=== PATIENT | male | born 1955 | race Caucasian/White ===

== ENCOUNTER 2020-01-17 09:37 | Day surgery (SDC) | payer MEDICARE ==
[2020-01-15 16:05] VITALS: BMI 34.9
[~2020-01-17 09:37] MED LIST: LACTATED RINGERS 1,000 ML IV SCH
[2020-01-17] MEDS ORDERED: LIDOCAINE 1% (10MG/ML) FOR IV START INTRADERMA ONE (10:29)
[2020-01-17 10:48] VITALS: RESP 18; TEMP 97.3
[2020-01-17] MEDS ORDERED: LIDOCAINE 1% INJ 10MG/ML (20 ML MDV) ONE (11:20)
[2020-01-17] MEDS ORDERED: PROPOFOL 10 MG/ML 20 ML VIAL IV ONE (11:20)
--- NOTE | 2020-01-17 11:34 | P.PCN ---
Date of Procedure: 01/17/20 Procedure(s) Performed: BRIEF HISTORY: Patient is a 65-year-old, pleasant, white female, scheduled for an upper endoscopy as a part of dilation as a part of evaluation of intermittent dysphagia to solids for the last 2 months duration. She has long-standing history of GERD and has esophageal dilation approximately 3 years ago.. PROCEDURE PERFORMED: Esophagogastroduodenoscopy with dilation and biopsy PREOPERATIVE DIAGNOSIS: Progressive dysphagia to solids. IV sedation per anesthesia. PROCEDURE: After informed consent was obtained, the patient was brought into the endoscopy unit. IV sedation was administered by Anesthesia under continuous monitoring. Initially the Olympus GIF-140 video endoscope was inserted into the mouth. Esophagus intubated without any difficulty. It was gradually advanced into the stomach and duodenum and carefully examined. The bulb and the second part of the duodenum appeared normal. The scope at this time was withdrawn to the stomach, adequately insufflated with air, and upon careful examination, mucosa of the antrum, body, cardia and the fundus appeared normal. The scope was then withdrawn into the esophagus. The GE junction was located at 34 cm from the incisors. There was a distal esophageal stricture identified and this was dilated with 10-12 mm balloon in a sequential fashion for 90 seconds. It was circumferential erythema as well as the distal esophagus consistent with LA grade C reflux esophagitis. Moderate size hiatal hernia noted. Rest of e sophagus appeared normal and the patient tolerated the procedure well. Impression 1. Distal esophageal stricture status post balloon dilation using 10-12 mm TTS balloon as described above. 2. Moderate Size hiatal hernia 3, LA grade C reflux esophagitis. RECOMMENDATIONS: The findings of this examination were discussed with the patient as well as her family. She was advised to remain on clear liquid diet for lunch today. She'll continue with Nexium 40 mg daily and follow antireflux measures. She'll be seen in office in 6 weeks.
[2020-01-17 12:23] VITALS: BP 128/73; PULSE 62
== END 2020-01-17 12:29 | disposition home or self-care (01) ==
LOC: ORWHC2ENDO 09:37
PROVIDERS: ATTEND Internal Medicine Gastroenterology
DX: K22.2 Esophageal obstruction (principal); K21.0 Gastro-esophageal reflux disease with esophagitis; K44.9 Diaphragmatic hernia without obstruction or gangrene; I25.2 Old myocardial infarction; K08.89 Other specified disorders of teeth and supporting structures; K08.409 Partial loss of teeth, unspecified cause, unspecified class; M06.9 Rheumatoid arthritis, unspecified; Z88.0 Allergy status to penicillin; Z88.6 Allergy status to analgesic agent; Z88.1 Allergy status to other antibiotic agents; Z91.013 Allergy to seafood; Z79.899 Other long term (current) drug therapy; Z79.891 Long term (current) use of opiate analgesic; Z87.891 Personal history of nicotine dependence; Z86.73 Personal history of transient ischemic attack (TIA), and cerebral infarction without residual deficits; Z98.890 Other specified postprocedural states
CPT/HCPCS: 88305; 43239; 43249; J2001; J2704; C1726 ×2

== ENCOUNTER 2024-05-06 16:08 | Inpatient (IN) | payer MEDICARE, OTHER ==
[2024-05-06] MEDS ORDERED: NALOXONE 0.4 MG/ML 1 ML VIAL IV PRN (16:46)
--- NOTE | 2024-05-06 16:54 | XR ---
EXAMINATION TYPE: XR chest 1V portable DATE OF EXAM: 05/06/2024 4:44 PM CLINICAL INDICATION: Male, 69 years old with history of chest tube placement; [facility] COMPARISON: Prior imaging at outside institution which demonstrated anterior pneumothorax on CT imagi ng. TECHNIQUE: XR chest 1V portable Frontal view of the chest. FINDINGS: Lungs/Pleura: Right pneumothorax appreciated on radiography. This was an anterior pneumothorax seen o n prior. There is no evidence of pleural effusion, focal consolidation, or left pneumothorax. Pulmonary vascularity: Unremarkable. Heart/mediastinum: Cardiomediastinal silhouette is unremarkable. Musculoskeletal: Acute right rib 7 and 8 fractures as seen on prior outside imaging. Other findings: None Lines/Tubes: Right thoracotomy tube is present without evidence of pneumothorax. IMPRESSION: 1. Right thoracotomy tube in appropriate position. No appreciable pneumothorax. 2. Right-sided rib fractures of ribs 7 and 8 remain present [facility], , 05/06/2024 4:52 PM
[2024-05-06 17:00] LABS: Basophils % (A) 0 %; Eosinophils # (A) 0.1 k/uL (0-0.7); Eosinophils % (A) 1 %; HCT 38.8 % (39.0-53.0); HGB 12.1 gm/dL (13.0-17.5); Hypochromasia Slight; Lymphocytes # (A) 2.3 k/uL (1.0-4.8); Lymphocytes % (A) 27 %; MCH 30.3 pg (25.0-35.0); MCHC 31.2 g/dL (31.0-37.0); MCV 97.1 fL (80.0-100.0); Mean Platelet Volume 7.6; Monocytes # (A) 0.6 k/uL (0-1.0); Monocytes % (A) 7 %; Neutrophils # (A) 5.2 k/uL (1.3-7.7); Neutrophils % (A) 61 %; Platelet Count 276 k/uL (150-450); RDW 13.5 % (11.5-15.5); WBC 8.5 k/uL (3.8-10.6)
[2024-05-06] MEDS: HYDROmorphone 0.5 MG/0.5 ML SYRINGE IVP PRN (17:02)
[2024-05-06 17:10] LABS: ALT 13 U/L (4-49); AST 27 U/L (17-59); African American GFR (CKD) >90 (>60 ml/min/1.73 sqM); Albumin 3.7 g/dL (3.5-5.0); Alkaline Phosphatase 110 U/L (38-126); Anion Gap 7 mmol/L; Blood Urea Nitrogen 20 mg/dL (9-20); Calcium 9.1 mg/dL (8.4-10.2); Carbon Dioxide 26 mmol/L (22-30); Chloride 103 mmol/L (98-107); Glucose 114 mg/dL (74-99); Non-African American GFR(CKD) 84 (>60 ml/min/1.73 sqM); Potassium 4.3 mmol/L (3.5-5.1); Sodium 136 mmol/L (137-145); Total Bilirubin 0.6 mg/dL (0.2-1.3); Total Protein 6.8 g/dL (6.3-8.2)
--- NOTE | 2024-05-06 17:16 | ED ---
General Adult HPI - General Chief complaint: Fall Stated complaint: R sided rib pain Time Seen by Provider: 05/06/24 16:13 Source: patient, RN notes reviewed, old records reviewed Mode of arrival: EMS Limitations: no limitations - History of Present Illness Initial comments: 69-year-old male transferred from outside hospital with right-sided rib fracture pneumothorax after sustaining a fall which occurred in the middle of the night. There was no head or neck trauma. Patient received CT imaging of the head, chest abdomen pelvis which showed a large pneumothorax on the right and displaced rib fractures seventh and eighth. Patient was transferred for chest tube placement and further evaluation and treatment. pain Controlled at this time. No difficulty breathing. - Related Data Home Medications Medication Instructions Recorded Confirmed Gabapentin 800 mg PO TID 01/15/20 05/06/24 HYDROcodone/APAP 10-325MG [Dorr 1 tab PO BID 01/15/20 05/06/24 10-325] Morphine Sulfate [Ms Contin] 100 mg PO Q12HR 01/15/20 05/06/24 Zolpidem Tartrate [Ambien] 10 mg PO HS 01/15/20 05/06/24 SUMAtriptan succinate [Imitrex] 50 mg PO DAILY PRN 05/06/24 05/06/24 Triamcinolone Acetonide 1 applic TOPICAL BID PRN 05/06/24 05/06/24 [Triamcinolone Acetonide 0.025%] Venlafaxine HCl [Effexor XR] 150 mg PO DAILY 05/06/24 05/06/24 rOPINIRole HCL [Requip] 3 mg PO HS PRN 05/06/24 05/06/24 Allergies Allergy/AdvReac Type Severity Reaction Status Date / Time aspirin Allergy Unknown Rash/Hives Verified 05/06/24 17:08 Penicillins Allergy Unknown Rash/Hives Verified 05/06/24 17:08 ciprofloxacin [From Cipro] Allergy fainting Verified 05/06/24 17:08 SEAFOOD Allergy Unknown Rash/Hives Uncoded 01/17/20 10:28 Review of Systems ROS Statement: Those systems with pertinent positive or pertinent negative responses have been documented in the HPI. ROS Other: All systems not noted in ROS Statement are negative. Past Medical History Past Medical History: GERD/Reflux, Myocardial Infarction ([place]), Rheumatoid Arthritis ([place]) Additional Past Medical History / Comment(s): "stroke of penis with difficulty urinating". difficulty eating wt loss of 100# over last 7 months Last Myocardial Infarction Date:: History of Any Multi-Drug Resistant Organisms: None Reported Past Surgical History: Joint Replacement, Tonsillectomy Additional Past Surgical History / Comment(s): 3 hip replacement surgeries lt hip, 1 replacement surgery to rt hip, shannan knee replacement, surgery to repair lt femur Past Anesthesia/Blood Transfusion Reactions: No Reported Reaction Past Psychological History: Depression Past Alcohol Use History: Rare Past Drug Use History: None Reported - Past Family History Mother Family Medical History: No Reported History General Exam Limitations: no limitations General appearance: alert, in no apparent distress Head exam: Present: atraumatic, normocephalic Eye exam: Present: normal appearance, PERRL ENT exam: Present: normal exam Neck exam: Present: normal inspection. Absent: tenderness Respiratory exam: Present: chest wall tenderness, decreased breath sounds (RIGHT). Absent: respiratory distress Cardiovascular Exam: Present: regular rate, normal rhythm GI/Abdominal exam: Present: soft. Absent: distended Extremities exam: Present: normal inspection, normal capillary refill Neurological exam: Present: alert, oriented X3. Absent: motor sensory deficit Psychiatric exam: Present: normal affect, normal mood Skin exam: Present: warm, dry, intact. Absent: cyanosis, diaphoretic Course Vital Signs 05/06/24 05/06/24 05/06/24 16:12 16:19 16:46 Temperature 98.1 F Pulse Rate 73 76 Respiratory 20 20 20 Rate Blood Pressure 134/73 130/60 O2 Sat by Pulse 99 97 Oximetry Procedures - Chest Tube Insertion Consent Obtained: verbal consent Side of Procedure: right Indication: Pneumothorax Placed on monitor/pulse oximetry: Yes Site Prep: Chloroprep Local Anesthesia: Lidocaine 2%, With Epi Scalpel: #11 Tube Size (Telugu): Other (THORAVENT) Returns: Air Attached to Suction: Yes Type of Suction: Pleuravac Repeat X-ray Results: Lung Inflated Patient Tolerated Procedure: well Medical Decision Making - Medical Decision Making Was pt. sent in by a medical professional or institution (, PA, POLY OPERATOR, urgent care, hospital, or alf...) When possible be specific @ -No Did you speak to anyone other than the patient for history (EMS, parent, family, police, friend...)? What history was obtained from this source @ -No Did you review nursing and triage notes (agree or disagree)? Why? @ -I reviewed and agree with nursing and triage notes Were old charts reviewed (outside hosp., previous admission, EMS record, old EKG, old radiological studies, urgent care reports/EKG's, alf records)? Report findings @ -No old charts were reviewed Differential Diagnosis traumatic injury from fall, pneumothorax, hemothorax, tension pneumothorax EKG interpreted by me (3pts min.). @ -As above X-rays interpreted by me (1pt min.). @ -Chest tube x-ray shows inflated lung CT interpreted by me (1pt min.). @ -None done U/S interpreted by me (1pt. min.). @ -None done What testing was considered but not performed or refused? (CT, X-rays, U/S, labs)? Why? @ -None What meds were considered but not given or refused? Why? @ -None Did you discuss the management of the patient with other professionals (professionals i.e. , PA, POLY OPERATOR, lab, RT, psych nurse, socially responsible investment adviser, title lawyer, teacher, environmental conservation officer, keycase assembler)? Give summary @ -Dr. Holland, will admit Was smoking cessation discussed for >3mins.? @ -No Was critical care preformed (if so, how long)? @ -[35 minutes Were there social determinants of health that impacted care today? How? (Homelessness, low income, unemployed, alcoholism, drug addiction, transportation, low edu. Level, literacy, decrease access to med. care, senior care, rehab)? @ -No Was there de-escalation of care discussed even if they declined (Discuss DNR or withdrawal of care, Hospice)? DNR status @ -No What co-morbidities impacted this encounter? (DM, HTN, Smoking, COPD, CAD, Can cer, CVA, ARF, Chemo, Hep., AIDS, mental health diagnosis, sleep apnea, morbid obesity)? @ -None Was patient admitted / discharged? Hospital course, mention meds given and route, prescriptions, significant lab abnormalities, going to OR and other pertinent info. @ -79-year-old male with fall, displaced rib fracture on the right with pneumothorax transferred for chest tube and reevaluation. Chest tube was placed in the emergency department lung is inflated on x-ray. Patient's hemodynamics are stable. Patient admitted to trauma service with pulmonology and medicine on consult. Pain controlled in the emergency department. Undiagnosed new problem with uncertain prognosis? @ -No Drug Therapy requiring intensive monitoring for toxicity (Heparin, Nitro, Insulin, Cardizem)? @ -No Were any procedures done? @Yes, chest tube Diagnosis/symptom? @ -Displaced rib fracture, pneumothorax Acute, or Chronic, or Acute on Chronic? @ -[Acute Uncomplicated (without systemic symptoms) or Complicated (systemic symptoms)? @ -complicated Side effects of treatment? @ -No Exacerbation, Progression, or Severe Exacerbation? @ -No Poses a threat to life or bodily function? How? (Chest pain, [place], [place], pneumonia, PE, COPD, DKA, ARF, appy, cholecystitis, CVA, Diverticulitis, Homicidal, Suicidal, threat to staff... and all critical care pts) @ -[yes yes, cardiovascular collapse secondary to tension pneumothorax, respiratory failure - Lab Data Result diagrams: 05/06/24 16:46 Lab Results 05/06/24 Range/Units 16:46 WBC 8.5 (3.8-10.6) k/uL RBC 4.00 L (4.30-5.90) m/uL Hgb 12.1 L (13.0-17.5) gm/dL Hct 38.8 L (39.0-53.0) % MCV 97.1 (80.0-100.0) fL MCH 30.3 (25.0-35.0) pg MCHC 31.2 (31.0-37.0) g/dL RDW 13.5 (11.5-15.5) % Plt Count 276 (150-450) k/uL MPV 7.6 Neutrophils % 61 % Lymphocytes % 27 % Monocytes % 7 % Eosinophils % 1 % Basophils % 0 % Neutrophils # 5.2 (1.3-7.7) k/uL Lymphocytes # 2.3 (1.0-4.8) k/uL Monocytes # 0.6 (0-1.0) k/uL Eosinophils # 0.1 (0-0.7) k/uL Basophils # 0.0 (0-0.2) k/uL Hypochromasia Slight Critical Care Time Critical Care Time: Yes Total Critical Care Time: 35 Disposition Clinical Impression: Chest tube in place, Pneumothorax, Ribs, multiple fractures Disposition: ADMITTED IP TO THIS [facility] Condition: Stable Is patient prescribed a controlled substance at d/c from ED?: No Referrals: Esteban Aguilar MD [Primary Care Provider] - 1-2 days Time of Disposition: 17:16
[2024-05-06] MEDS: ZOLPIDEM 5 MG TAB PO SCH (21:24)
[2024-05-06] MEDS: GABAPENTIN 400 MG CAP PO SCH (22:27)
[2024-05-07] MEDS: ACETAMINOPHEN TAB 325 MG TAB PO PRN (05:44)
[2024-05-07] MEDS: VENLAFAXINE HCL ER 150 MG CAP PO SCH (10:37)
[2024-05-07] MEDS ORDERED: SUMAtriptan succinate 50 MG TAB PO PRN (12:32)
[2024-05-07] MEDS: bisacodyL 5 MG TABLET.DR PO SCH (13:29)
[2024-05-07] MEDS: ENOXAPARIN 40 MG/0.4 ML SYRINGE SQ SCH (13:29)
--- NOTE | 2024-05-07 14:17 | P.CNPUL ---
History of Present Illness Consult date: 05/07/24 Chief complaint: Pneumothorax History of present illness: This is a very pleasant 69-year-old male patient who presented to [facility] after having an episode of syncope. The patient got out of bed at around 2:30 AM and before getting back into the bed he passed out landing on the floor in his bedroom. He did land on his right side and he caught a piece of furniture when he fell as well. No head trauma. He is known to have previous history of heart disease. He is a non-smoker. Notes of alcoholism. No previous episodes of syncope. No focal neurological deficits for now. No altered mentation. He initially presented himself to [facility] The patient was found to have a right-sided pneumothorax. A chest x-ray that was done in [facility] showed a right-sided pneumothorax along with fracture in the seventh and eighth rib. CAT scan of the abdomen and pelvis showed a large hiatal hernia and a right-sided pneumothorax. CAT scan of the head showed no acute abnormalities. No evidence of intracranial bleeds. CAT scan of the chest showed a right lateral seventh and eighth rib fracture along with a large right-sided pneumothorax. The blood work showed a WBC count of 8.9 with a hemoglobin 12.2 and a platelet count of 255. The patient had a BUN of 22 with a creatinine 1.33. Electrolytes were essentially within normal limits. CPK was 194. Troponin was negative. The patient had a proBNP level of 464. His coagulation profile was essentially within normal limits. Review of Systems Constitutional: Reports fatigue Eyes: denies as per HPI, denies blurred vision, denies bulging eye, denies decreased vision, denies diplopia, denies discharge, denies dry eye, denies irritation, denies itching, denies pain, denies photophobia, denies loss of peripheral vision, denies loss of vision, denies tunnel vision/blind spots Ears: deny: decreased hearing, ear discharge, earache, tinnitus Ears, nose, mouth and throat: Reports as per HPI (Edentulous) Breasts: absent: as per HPI, gynecomastia Cardiovascular: Reports decreased exercise tolerance, Reports shortness of breath Respiratory: Reports dyspnea Genitourinary: Reports as per HPI Musculoskeletal: Reports as per HPI Musculoskeletal: absent: ankle pain, ankle stiffness, ankle swelling, as per HPI, elbow pain, elbow stiffness, elbow swelling, foot pain, foot stiffness, foot swelling, hand pain, hand stiffness, hand swelling, hip pain, hip stiffness, hip swelling, knee pain, knee stiffness, knee swelling, shoulder pain, shoulder stiffness, shoulder swelling, wrist pain, wrist stiffness, wrist swelling Integumentary: Reports as per HPI Neurological: Reports as per HPI, Reports syncope Psychiatric: Reports as per HPI Endocrine: Reports as per HPI Hematologic/Lymphatic: Reports as per HPI Allergic/Immunologic: Reports as per HPI Past Medical History Past Medical History: GERD/Reflux, Myocardial Infarction ([place]), Rheumatoid Arthritis ([place]) Additional Past Medical History / Comment(s): "stroke of penis with difficulty urinating". esophageal stricture and he has undergone balloon angioplasty. wt loss of 100# over last 7 months. CBP Last Myocardial Infarction Date:: History of Any Multi-Drug Resistant Organisms: None Reported Past Surgical History: Joint Replacement, Tonsillectomy Additional Past Surgical History / Comment(s): 3 hip replacement surgeries lt hip, 1 replacement surgery to rt hip, shannan knee replacement, surgery to repair lt femur Past Anesthesia/Blood Transfusion Reactions: No Reported Reaction Past Psychological History: Depression Past Alcohol Use History: Rare Past Drug Use History: None Reported - Past Family History Mother Family Medical History: No Reported History Medications and Allergies Home Medications Medication Instructions Recorded Confirmed Type Gabapentin 800 mg PO TID 01/15/20 05/06/24 History HYDROcodone/APAP 10-325MG [Don[place]ue 1 tab PO BID 01/15/20 05/06/24 History 10-325] Morphine Sulfate [Ms Contin] 100 mg PO Q12HR 01/15/20 05/06/24 History Zolpidem Tartrate [Ambien] 10 mg PO HS 01/15/20 05/06/24 History Ferrous Sulfate [Feosol] 325 mg PO DAILY 05/06/24 05/06/24 History SUMAtriptan succinate [Imitrex] 50 mg PO DAILY PRN 05/06/24 05/06/24 History Triamcinolone Acetonide 1 applic TOPICAL BID PRN 05/06/24 05/06/24 History [Triamcinolone Acetonide 0.025%] Venlafaxine HCl [Effexor XR] 150 mg PO DAILY 05/06/24 05/06/24 History bisacodyL [Dulcolax] 5 mg PO DAILY 05/06/24 05/06/24 History rOPINIRole HCL [Requip] 3 mg PO HS PRN 05/06/24 05/06/24 History Allergies Allergy/AdvReac Type Severity Reaction Status Date / Time aspirin Allergy Unknown Rash/Hives Verified 05/06/24 17:08 Penicillins Allergy Unknown Rash/Hives Verified 05/06/24 17:08 ciprofloxacin [From Cipro] Allergy fainting Verified 05/06/24 17:08 SEAFOOD Allergy Unknown Rash/Hives Uncoded 01/17/20 10:28 Physical Exam Vitals: Vital Signs Temp Pulse Resp BP Pulse Ox 05/07/24 05:31 67 18 157/84 05/07/24 02:00 70 18 122/71 100 05/06/24 21:27 65 20 129/74 100 05/06/24 18:00 75 20 140/60 96 05/06/24 17:19 65 18 135/68 98 05/06/24 16:46 20 05/06/24 16:19 76 20 130/60 97 05/06/24 16:12 98.1 F 73 20 134/73 99 Intake and Output 05/06/24 05/07/24 05/07/24 22:59 06:59 14:59 Other: Weight 69.4 kg Results - Laboratory Findings CBC and BMP: 05/06/24 16:46 05/06/24 16:46 Abnormal lab findings: Abnormal Labs 05/06/24 05/06/24 16:46 16:46 RBC 4.00 L Hgb 12.1 L Hct 38.8 L Sodium 136 L Glucose 114 H Assessment and Plan Plan: Traumatic right-sided pneumothorax, status post insertion of a Thora vent with subsequent reexpansion of right lung. No evidence of any air leak in the Pleur- evac is currently attached to the Thora vent and there is no significant output. Patient is on low suction at -20 cm of water. Repeat chest x-ray shows resolution of the right-sided pneumothorax. Right-sided rib fractures seventh and eighth secondary to trauma Syncope under investigation History of esophageal stricture with previous balloon dilatation and the patient has had significant weight loss over the years History of rheumatoid arthritis History of migraines Iron deficiency Chronic anxiety/depression Large hiatal hernia Plan Keep the Thora vent in place and obtain daily chest x-rays Keep the tube appears to -20 cm suction through the Pleur-evac Obtain echocardiogram May need a cardiac evaluation neuroevaluation regarding his syncope CAT scan of the brain has been negative We will continue to follow.
[2024-05-07] MEDS: MORPHINE SULFATE ER 100 MG TABLET PO SCH (15:11)
--- NOTE | 2024-05-07 19:19 | XR ---
EXAMINATION TYPE: XR chest 1V portable DATE OF EXAM: 05/07/2024 7:11 PM CLINICAL INDICATION: Male, 69 years old with history of Increasing pain; [facility] COMPARISON: 05/06/2024. TECHNIQUE: XR chest 1V portable Frontal view of the chest. FINDINGS: Lungs/Pleura: There is no evidence of pleural effusion, focal consolidation, or pneumothorax. Pulmonary vascularity: Unremarkable. Heart/mediastinum: Cardiomediastinal silhouette is unremarkable. Musculoskeletal: Acute fractures right ribs 7 and 8. Other findings: None Lines/Tubes: Right thoracotomy tube is present without evidence of pneumothorax. IMPRESSION: Right thoracotomy tube with out visualization of visceral pleural line identified to suggest pneumoth orax. Right rib 7 and 8 fractures. COPD changes. [facility], , 05/07/2024 7:17 PM
--- NOTE | 2024-05-07 19:59 | P.CONS ---
History of Present Illness - Reason for Consult Consult date: 05/07/24 Medical management Requesting physician: Barrie Holland - Chief Complaint Fall - History of Present Illness Pleasant 69-year-old patient who follows with Gena Avitia. 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 Chronic stable medical condition include GERD, significant rheumatoid arthritis, esophageal stricture that has been dilated in the past. A while ago. Has not followed up. He has trouble eating because the same has lost significant amount of weight for the same in the last 2 years. Patient has chronic back and knee pain. Depression. Last night apparently patient had gotten up to go to the bathroom and he thinks that he may have blacked out not sure. There is no head or neck trauma. He suffered right-sided seventh and eighth rib fracture and a large pneumothorax. He was transferred here from [facility] has a right- sided Thora vent-. Is attached to suction. At the baseline does use a cane. Normally has a bowel movement once every week. Review of systems: GEN.: Tired EYES: None HEENT: None NECK: None RESPIRATORY: Some shortness of breath and pain at the Thora-vent site CARDIOVASCULAR: None GASTROINTESTINAL: None GENITOURINARY: None MUSCULOSKELETAL: Chronic back and knee pain] LYMPHATICS: None HEMATOLOGICAL: None PSYCHIATRY: None NEUROLOGICAL: [Does use a cane. No focal symptoms following the fall. Social history: Lives with his . Does use a cane. Did smoke in the past. 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 Physical examination: VITAL SIGNS: 98.2, 56, 22, 131 x 72, 96% on 2 L GENERAL: BMI 24, reclining bed awake slightly uncomfortable. EYES: Pupils equal. Conjunctiva flavia l. HEENT: External appearance of nose and ears normal, oral cavity grossly normal. NECK: JVD not raised; masses not palpable. HEART: First and second heart sounds are normal; no edema. LUNGS: Respiratory rate increased, decreased breath sound. Right-sided Thora-vent. ABDOMEN: Soft, nontender, liver spleen not palpable, no masses palpable. PSYCH: Alert and oriented x3; mood and affect flavia l. MUSCULOSKELETAL:No Clubbing/cyanosis;muscles-grossly intact. OA NEUROLOGICAL: Cranial nerves grossly intact; no facial asymmetry, power and sensation grossly intact. LYMPHATICS: No lymph nodes palpable in the axilla and neck INVESTIGATIONS, reviewed in the clinical context: Chest x-ray film personally reviewed by me-hyperinflation. Right seventh and eighth rib fracture. Thora-vent Assessment plan: -Right-sided traumatic pneumothorax secondary to fall. Thora-vent to drain -Right sided 7 and 8 rib fractures secondary to fall -Large hiatal hernia -Significant rheumatoid arthritis. Which chronic back and knee pain. For chronic pain patient takes MS Contin 100 mg every 12 and [place] 10 twice daily. Also on gabapentin -Depression anxiety Effexor XR 150 mg a day -Restless leg syndrome Requip 3 mg nightly as needed -Chronic insomnia Ambien 10 mg p.o. nightly -Chronic constipation secondary to chronic narcotics. Baseline about 1 bowel movement a week -Chronic gait dysfunction does use a cane at the baseline -Full code Care was discussed with patient. Questions answered. Thank you Dr. Holland, will follow along Dulcolax as needed. Past Medical History Past Medical History: GERD/Reflux, Myocardial Infarction ([place]), Rheumatoid Arthritis ([place]) Additional Past Medical History / Comment(s): "stroke of penis with difficulty urinating". esophageal stricture and he has undergone balloon angioplasty. wt loss of 100# over last 7 months. CBP Last Myocardial Infarction Date:: History of Any Multi-Drug Resistant Organisms: None Reported Past Surgical History: Joint Replacement, Tonsillectomy Additional Past Surgical History / Comment(s): 3 hip replacement surgeries lt hip, 1 replacement surgery to rt hip, shannan knee replacement, surgery to repair lt femur Past Anesthesia/Blood Transfusion Reactions: No Reported Reaction Past Psychological History: Depression Past Alcohol Use History: Rare Past Drug Use History: None Reported - Past Family History Mother Family Medical History: No Reported History Father History Unknown: Yes Medications and Allergies Home Medications Medication Instructions Recorded Confirmed Type Gabapentin 800 mg PO TID 01/15/20 05/06/24 History HYDROcodone/APAP 10-325MG [[place] 1 tab PO BID 01/15/20 05/06/24 History 10-325] Morphine Sulfate [Ms Contin] 100 mg PO Q12HR 01/15/20 05/06/24 History Zolpidem Tartrate [Ambien] 10 mg PO HS 01/15/20 05/06/24 History Ferrous Sulfate [Feosol] 325 mg PO DAILY 05/06/24 05/06/24 History SUMAtriptan succinate [Imitrex] 50 mg PO DAILY PRN 05/06/24 05/06/24 History Triamcinolone Acetonide 1 applic TOPICAL BID PRN 05/06/24 05/06/24 History [Triamcinolone Acetonide 0.025%] Venlafaxine HCl [Effexor XR] 150 mg PO DAILY 05/06/24 05/06/24 History bisacodyL [Dulcolax] 5 mg PO DAILY 05/06/24 05/06/24 History rOPINIRole HCL [Requip] 3 mg PO HS PRN 05/06/24 05/06/24 History Allergies Allergy/AdvReac Type Severity Reaction Status Date / Time aspirin Allergy Unknown Rash/Hives Verified 05/06/24 17:08 Penicillins Allergy Unknown Rash/Hives Verified 05/06/24 17:08 ciprofloxacin [From Cipro] Allergy fainting Verified 05/06/24 17:08 SEAFOOD Allergy Unknown Rash/Hives Uncoded 01/17/20 10:28 Physical Exam Vitals: Vital Signs Temp Pulse Resp BP Pulse Ox 05/07/24 05:31 67 18 157/84 05/07/24 02:00 70 18 122/71 100 05/06/24 21:27 65 20 129/74 100 05/06/24 18:00 75 20 140/60 96 05/06/24 17:19 65 18 135/68 98 05/06/24 16:46 20 05/06/24 16:19 76 20 130/60 97 05/06/24 16:12 98.1 F 73 20 134/73 99 Intake and Output 05/06/24 05/07/24 05/07/24 22:59 06:59 14:59 Other: Weight 69.4 kg Results CBC & Chem 7: 05/06/24 16:46 05/06/24 16:46 Labs: Abnormal Lab Results - Last 24 Hours (Table) 05/06/24 05/06/24 Range/Units 16:46 16:46 RBC 4.00 L (4.30-5.90) m/uL Hgb 12.1 L (13.0-17.5) gm/dL Hct 38.8 L (39.0-53.0) % Sodium 136 L (137-145) mmol/L Glucose 114 H (74-99) mg/dL
[2024-05-07] MEDS: LIDOCAINE 4% PATCH TOPICAL SCH (20:57)
--- NOTE | 2024-05-07 21:19 | P.GSHP ---
History of Present Illness 69-year-old male transferred from outside hospital with right-sided rib fracture pneumothorax after sustaining a fall which occurred in the middle of the night. There was no head or neck trauma. Patient received CT imaging of the head, chest abdomen pelvis which showed a large pneumothorax on the right and displaced rib fractures seventh and eighth. Patient was transferred for chest tube placement and further evaluation and treatment. pain Controlled at this time. No difficulty breathing. - Constitutional Constitutional: Reports as per HPI Past Medical History Past Medical History: GERD/Reflux, Myocardial Infarction ([place]), Rheumatoid Arthri tis ([place]) Additional Past Medical History / Comment(s): "stroke of penis with difficulty urinating". esophageal stricture and he has undergone balloon angioplasty. wt loss of 100# over last 7 months. CBP Last Myocardial Infarction Date:: History of Any Multi-Drug Resistant Organisms: None Reported Past Surgical History: Joint Replacement, Tonsillectomy Additional Past Surgical History / Comment(s): 3 hip replacement surgeries lt hip, 1 replacement surgery to rt hip, shannan knee replacement, surgery to repair lt femur Past Anesthesia/Blood Transfusion Reactions: No Reported Reaction Past Psychological History: Depression Past Alcohol Use History: Rare Past Drug Use History: None Reported - Past Family History Mother Family Medical History: No Reported History Father History Unknown: Yes Medications and Allergies Home Medications Medication Instructions Recorded Confirmed Type Gabapentin 800 mg PO TID 01/15/20 05/06/24 History HYDROcodone/APAP 10-325MG [[place] 1 tab PO BID 01/15/20 05/06/24 History 10-325] Morphine Sulfate [Ms Contin] 100 mg PO Q12HR 01/15/20 05/06/24 History Zolpidem Tartrate [Ambien] 10 mg PO HS 01/15/20 05/06/24 History Ferrous Sulfate [Feosol] 325 mg PO DAILY 05/06/24 05/06/24 History SUMAtriptan succinate [Imitrex] 50 mg PO DAILY PRN 05/06/24 05/06/24 History Triamcinolone Acetonide 1 applic TOPICAL BID PRN 05/06/24 05/06/24 History [Triamcinolone Acetonide 0.025%] Venlafaxine HCl [Effexor XR] 150 mg PO DAILY 05/06/24 05/06/24 History bisacodyL [Dulcolax] 5 mg PO DAILY 05/06/24 05/06/24 History rOPINIRole HCL [Requip] 3 mg PO HS PRN 05/06/24 05/06/24 History Allergies Allergy/AdvReac Type Severity Reaction Status Date / Time aspirin Allergy Unknown Rash/Hives Verified 05/06/24 17:08 Penicillins Allergy Unknown Rash/Hives Verified 05/06/24 17:08 ciprofloxacin [From Cipro] Allergy fainting Verified 05/06/24 17:08 SEAFOOD Allergy Unknown Rash/Hives Uncoded 01/17/20 10:28 Surgical - Exam Osteopathic Statement: *. No significant issues noted on an osteopathic structural exam other than those noted in the History and Physical/Consult. Vital Signs Temp Pulse Resp BP Pulse Ox 98.1 F 73 20 134/73 99 05/06/24 16:12 05/06/24 16:12 05/06/24 16:12 05/06/24 16:12 05/06/24 16:12 - General gen: nad heent: atraumatic, acephalic, eyes perrla, oral mucosa moist cv: rrr pul: non labored breathin, chest tube in place with appropriate tidaling, no air leak abd: soft, non distended, non tender to palpation, no guarding or rebound tenderness ext: lower extremities demonstrates palpable dp pulse Results - Labs 05/06/24 16:46 05/06/24 16:46 Assessment and Plan Assessment: 69 yo male w/ rib fractures and pneumothorax -chest xr reviewed, persistent pneumothorax, continue on wall suction for now -follow up am chest xr -encourage incentive spirometer -pain control, added robaxin, lidocaine patch Time with Patient: Less than 30
[2024-05-07] MEDS: methocarbamoL 500 MG TAB PO SCH (22:02)
--- NOTE | 2024-05-08 09:28 | XR ---
EXAMINATION TYPE: XR chest 2V DATE OF EXAM: 05/08/2024 HISTORY: Pneumothorax COMPARISON: 05/07/2024 TECHNIQUE: Single view of the chest is submitted. FINDINGS: Demonstrated are scattered senescent parenchymal change. Right-sided pleural catheter is noted to be in place. There is right basilar pneumothorax seen with h ydropneumothorax component. The pneumothorax estimated at at least 10%. The heart is stable. Hilar and mediastinal structures are within normal limits. Degenerative changes are seen of the dorsal spine. IMPRESSION: 1. Basilar pneumothorax estimated at at least 10% with hydropneumothorax component. [facility], , 05/08/2024 9:26 AM
--- NOTE | 2024-05-08 10:58 | CA ---
Transthoracic Echo Report Name: Joel Rausch Age: 69 Gender: M : 1955 Exam Date: 05/08/2024 08:13 Exam Location: [place] [facility] Ht (in): 67 Wt (lb): 153 Ordering Physician: Tato Lopes MD Attending/Referring Phys: Daycare Worker Blessing Carrillo RDCS Procedure CPT: Indications: Syncope Cardiac Hx: Technical Quality: Fair Contrast 1: Total Dose (mL): Contrast 2: Total Dose (mL): MEASUREMENTS (Male / Female) Normal Values 2D ECHO LV Diastolic Diameter PLAX 3.6 cm 4.2 - 5.9 / 3.9 - 5.3 cm LV Systolic Diameter PLAX 1.8 cm IVS Diastolic Thickness 1.0 cm 0.6 - 1.0 / 0.6 - 0.9 cm LVPW Diastolic Thickness 1.1 cm 0.6 - 1.0 / 0.6 - 0.9 cm LV Relative Wall Thickness 0.6 RV Internal Dim ED PLAX 1.5 cm LA Systolic Diameter LX 3.0 cm 3.0 - 4.0 / 2.7 - 3.8 cm LV Diastolic Volume MOD BP 48.0 cm??? 67 - 155 / 56 - 104 cm??? LV Systolic Volume MOD BP 14.7 cm??? 22 - 58 / 19 - 49 cm??? LV Ejection Fraction MOD BP 69.4 % >= 55 % LV Cardiac Index MOD BP 1502.4 cm???/min???m??? LV Diastolic Volume MOD 4C 55.1 cm??? LV Systolic Volume MOD 4C 15.5 cm??? LV Ejection Fraction MOD 4C 71.8 % LV Cardiac Index MOD 4C 1784.8 cm???/min???m??? LV Diastolic Length 4C 6.7 cm LV Systolic Length 4C 5.3 cm LV Diastolic Volume MOD 2C 42.0 cm??? LV Systolic Volume MOD 2C 13.5 cm??? LV Ejection Fraction MOD 2C 67.8 % LV Cardiac Index MOD 2C 1284.7 cm???/min???m??? LV Diastolic Length 2C 6.7 cm LV Systolic Length 2C 5.6 cm M-MODE Aortic Root Diameter MM 3.0 cm LA Systolic Diameter MM 3.0 cm LA Ao Ratio MM 1.0 AV Cusp Separation MM 1.9 cm DOPPLER Mitral E Point Velocity 86.9 cm/s Mitral A Point Velocity 92.3 cm/s Mitral E to A Ratio 0.9 MV Deceleration Time 371.8 ms MV E' Velocity 6.4 cm/s Mitral E to MV E' Ratio 13.5 TR Peak Velocity 241.5 cm/s TR Peak Gradient 23.3 mmHg FINDINGS Left Ventricle Left ventricular ejection fraction is estimated at 55-60%. Normal left ventricular systolic function with no obvious regional wall motion abnormalities. Left ventricular cavity size normal. Right Ventricle Normal right ventricular size and function. Right ventricular systolic pressure within normal limits. Right Atrium Mild right atrial dilatation. Left Atrium Mild left atrial dilatation. Mitral Valve Structurally normal mitral valve. No mitral stenosis. Trace mitral regurgitation. Aortic Valve Trileaflet aortic valve. No aortic valve stenosis or regurgitation. Tricuspid Valve Structurally normal tricuspid valve. Mild tricuspid regurgitation. Pulmonic Valve Structurally normal pulmonic valve. Trace pulmonic regurgitation. No pulmonic stenosis. Pericardium No pericardial or pleural effusion. Aorta Normal size aortic root and proximal ascending aorta. CONCLUSIONS Normal LV Previewed by: Dr. Henry Peterson MD (Electronically Signed) Final Date: 08 May 2024 10:57
[2024-05-08 13:33] VITALS: BMI 27.1
--- NOTE | 2024-05-08 14:59 | P.PN ---
Subjective Patient seen and evaluated at bedside. Patient complaining of chest pain Objective - Vital Signs Vital signs: Vital Signs Temp 98.3 F 05/07/24 20:10 Pulse 82 05/08/24 12:00 Resp 16 05/08/24 12:00 BP 97/60 05/08/24 12:00 Pulse Ox 97 05/08/24 12:00 FiO2 Intake & Output 05/07/24 05/08/24 05/08/24 18:59 06:59 18:59 Intake Total 240 Output Total 0 250 0 Balance 0 -250 240 Weight 69.4 kg 78.6 kg 78.6 kg Intake: Oral 240 Output: Gastric Drainage 0 Urine 0 250 Stool 0 0 Urine/Stool Mix 0 Emesis 0 Oral Regurgitation 0 Other 0 Other: Voiding Method External Catheter External Catheter External Catheter # Voids 0 # Bowel Movements 0 - Exam gen: nad cv: rrr pul: non labored breathing, chest tube in place, no air leak abd: soft, non distended, no guarding or rebound tenderness - Labs CBC & Chem 7: 05/06/24 16:46 05/06/24 16:46 Assessment and Plan Assessment: 69 yo male s/p rib fracture with associated pneumothorax Time with Patient: Less than 30
--- NOTE | 2024-05-08 17:09 | P.PN ---
Progress Note - Text Progress Note Date: 05/08/24 - Chief Complaint Fall - History of Present Illness Pleasant 69-year-old patient who follows with Gena Avitia. 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 Chronic stable medical condition include GERD, significant rheumatoid arthritis, esophageal stricture that has been dilated in the past. A while ago. Has not followed up. He has trouble eating because the same has lost significant amount of weight for the same in the last 2 years. Patient has chronic back and knee pain. Depression. Last night apparently patient had gotten up to go to the bathroom and he thinks that he may have blacked out not sure. There is no head or neck trauma. He suffered right-sided seventh and eighth rib fracture and a large pneumothorax. He was transferred here from [facility] has a right- sided Thora vent-. Is attached to suction. At the baseline does use a cane. Normally has a bowel movement once every week. May 08: Laying in bed. at the bedside. Some pain at the right rib fracture site. Tolerating diet. Taking his medications. Active Medications Acetaminophen (Acetaminophen Tab 325 Mg Tab) 650 mg PO Q6HR PRN PRN Reason: Mild Pain or Fever > 100.5 Last Admin: 05/07/24 05:44 Dose: 650 mg Bisacodyl (Bisacodyl 5 Mg Tablet.) 5 mg PO DAILY [facility] Last Admin: 05/08/24 08:35 Dose: 5 mg Enoxaparin Sodium (Enoxaparin 40 Mg/0.4 Ml Syringe) 40 mg SQ DAILY [facility] Last Admin: 05/08/24 08:34 Dose: 40 mg Gabapentin (Gabapentin 400 Mg Cap) 800 mg PO TID [facility] Last Admin: 05/08/24 16:32 Dose: 800 mg Hydromorphone HCl (Hydromorphone 0.5 Mg/0.5 Ml Syringe) 0.5 mg IVP Q3HR PRN PRN Reason: Moderate Pain (Scale 4 to 6) Last Admin: 05/08/24 13:39 Dose: 0.5 mg Lidocaine (Lidocaine 4% Patch) 1 patch TOPICAL DAILY [facility]; Protocol Last Admin: 05/08/24 08:35 Dose: 1 patch Methocarbamol (Methocarbamol 500 Mg Tab) 500 mg PO TID [facility] Last Admin: 05/08/24 16:32 Dose: 500 mg Morphine Sulfate (Morphine Sulfate Er 100 Mg Tablet) 100 mg PO Q12HR [facility]; Protocol Last Admin: 05/08/24 08:36 Dose: 100 mg Naloxone HCl (Naloxone 0.4 Mg/Ml 1 Ml Vial) 0.2 mg IV Q2M PRN PRN Reason: Opioid Reversal Ropinirole HCl (Ropinirole Hcl 1 Mg Tab) 3 mg PO HS PRN PRN Reason: RESTLESS LEGS Sumatriptan Succinate (Sumatriptan Succinate 50 Mg Tab) 50 mg PO DAILY PRN PRN Reason: Migraine Headache Venlafaxine HCl (Venlafaxine Hcl Er 150 Mg Cap) 150 mg PO DAILY [facility] Last Admin: 05/08/24 08:35 Dose: 150 mg Zolpidem Tartrate (Zolpidem 5 Mg Tab) 10 mg PO HS [facility] Last Admin: 05/07/24 20:56 Dose: 10 mg Social history: Lives with his . Does use a cane. Did smoke in the past. 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 Physical examination: VITAL SIGNS: 70, 16, 118 x 66, 96% room air GENERAL: BMI 24, reclining bed awake slightly uncomfortable. EYES: Pupils equal. Conjunctiva flavia l. HEENT: External appearance of nose and ears normal, oral cavity grossly normal. NECK: JVD not raised; masses not palpable. HEART: First and second heart sounds are normal; no edema. LUNGS: Respiratory rate increased, decreased breath sound. Right-sided [id number] to seal. ABDOMEN: Soft, nontender, liver spleen not palpable, no masses palpable. PSYCH: Alert and oriented x3; mood and affect flavia l. MUSCULOSKELETAL:No Clubbing/cyanosis;muscles-grossly intact. OA. Right chest wall tenderness INVESTIGATIONS, reviewed in the clinical context: May 06: White count 8.5 hemoglobin 12.1 platelets 276 potassium 4.3 creatinine 0.92 Chest x-ray film personally reviewed by me-hyperinflation. Right seventh and eighth rib fracture. Thora-vent Assessment plan: -Right-sided traumatic pneumothorax secondary to fall. [id number] to serial -Right sided 7 and 8 rib fractures secondary to fall. Causing pain tenderness -Large hiatal hernia -Significant rheumatoid arthritis. Which chronic back and knee pain. For chronic pain patient takes MS Contin 100 mg every 12 and [place] 10 twice daily. gabapentin -Depression anxiety Effexor XR 150 mg a day -Restless leg syndrome Requip 3 mg nightly as needed -Chronic insomnia Ambien 10 mg p.o. nightly -Chronic constipation secondary to chronic narcotics. Baseline about 1 bowel movement a week Dulcolax as needed -Chronic gait dysfunction does use a cane at the baseline -Full code Discussed with patient and Thank you Dr. Holland, will follow along Past Medical History Past Medical History: GERD/Reflux, Myocardial Infarction ([place]), Rheumatoid Arthritis ([place]) Additional Past Medical History / Comment(s): "stroke of penis with difficulty urinating". esophageal stricture and he has undergone balloon angioplasty. wt loss of 100# over last 7 months. CBP Last Myocardial Infarction Date:: History of Any Multi-Drug Resistant Organisms: None Reported Past Surgical History: Joint Replacement, Tonsillectomy Additional Past Surgical History / Comment(s): 3 hip replacement surgeries lt hip, 1 replacement surgery to rt hip, shannan knee replacement, surgery to repair lt femur Past Anesthesia/Blood Transfusion Reactions: No Reported Reaction Past Psychological History: Depression Past Alcohol Use History: Rare Past Drug Use History: None Reported
--- NOTE | 2024-05-08 17:53 | P.PN ---
Subjective Progress Note Date: 05/08/24 This is a very pleasant 69-year-old male patient who presented to [facility] after having an episode of syncope. The patient got out of bed at around 2:30 AM and before getting back into the bed he passed out landing on the floor in his bedroom. He did land on his right side and he caught a piece of furniture when he fell as well. No head trauma. He is known to have previous history of heart disease. He is a non-smoker. Notes of alcoholism. No previous episodes of syncope. No focal neurological deficits for now. No altered mentation. He initially presented himself to [facility]. The patient was found to have a right-sided pneumothorax. A chest x-ray that was done in [facility] showed a right-sided pneumothorax along with fracture in the seventh and eighth rib. CAT scan of the abdomen and pelvis showed a large hiatal hernia and a right-sided pneumothorax. CAT scan of the head showed no acute abnormalities. No evidence of intracranial bleeds. CAT scan of the chest showed a right lateral seventh and eighth rib fracture along with a large right-sided pneumothorax. The blood work showed a WBC count of 8.9 with a hemoglobin 12.2 and a platelet count of 255. The patient had a BUN of 22 with a creatinine 1.33. Electrolytes were essentially within normal limits. CPK was 194. Troponin was negative. The patient had a proBNP level of 464. His coagulation profile was essentially within normal limits. The patient is seen today May 08, 2024 in follow-up on the selective care unit. He is currently resting comfortably in bed. Awake and alert in no acute distress. Maintaining good O2 saturations in the 90s on room air. Afebrile. Hemodynamically stable. He remains with a Thora vent to the right chest that is to wall suction. No leak noted. Chest x-ray shows near complete expansion of the pneumothorax. Evidence of fractures to ribs 7 and 8. Echocardiogram reveals normal left ventricular systolic function. No labs today. Lovenox for DVT prophylaxis. Lidocaine patch and morphine for pain control. Objective - Vital Signs Vital signs: Vital Signs Temp 98.3 F 05/07/24 20:10 Pulse 70 05/08/24 16:00 Resp 16 05/08/24 16:00 BP 118/66 05/08/24 16:00 Pulse Ox 96 05/08/24 16:00 FiO2 Intake & Output 05/07/24 05/08/24 05/08/24 18:59 06:59 18:59 Intake Total 240 Output Total 0 250 0 Balance 0 -250 240 Weight 69.4 kg 78.6 kg 78.6 kg Intake: Oral 240 Output: Gastric Drainage 0 Urine 0 250 Stool 0 0 Urine/Stool Mix 0 Emesis 0 Oral Regurgitation 0 Other 0 Other: Voiding Method External Catheter External Catheter External Catheter # Voids 0 # Bowel Movements 0 - Exam GENERAL EXAM: Alert, very pleasant 69-year-old male, on room air, fairly comfortable in no apparent distress. HEAD: Normocephalic. EYES: Normal reaction of pupils, equal size. NOSE: Clear with pink turbinates. THROAT: No erythema or exudates. NECK: No masses, no JVD. CHEST: No chest wall deformity. Right sided Thora vent in place. To wall suction. LUNGS: Equal air entry with no crackles, wheeze, rhonchi or dullness. CVS: S1 and S2 normal with no audible murmur, regular rhythm. ABDOMEN: No hepatosplenomegaly, normal bowel sounds, no guarding or rigidity. SPINE: No scoliosis or deformity SKIN: No rashes CENTRAL NERVOUS SYSTEM: No focal deficits, tone is normal in all 4 extremities. EXTREMITIES: There is no peripheral edema. No clubbing, no cyanosis. Peripheral pulses are intact. - Labs CBC & Chem 7: 05/06/24 16:46 05/06/24 16:46 Assessment and Plan Assessment: Traumatic right-sided pneumothorax, status post insertion of a Thora vent with s ubsequent reexpansion of right lung. No evidence of any air leak in the Pleur- evac is currently attached to the Thora vent and there is no significant output. Patient is on low suction at -20 cm of water. Repeat chest x-ray shows resolution of the right-sided pneumothorax. Right-sided rib fractures seventh and eighth secondary to trauma Syncope under investigation History of esophageal stricture with previous balloon dilatation and the patient has had significant weight loss over the years History of rheumatoid arthritis History of migraines Iron deficiency Chronic anxiety/depression Large hiatal hernia Plan: The patient was seen and evaluated Chest x-ray and medications reviewed Continue Thora vent to wall suction Plan to cap tomorrow If follow-up chest x-ray shows no pneumothorax, may remove Thora vent tomorrow I have personally seen and examined the patient, performed the documentation and the assessment and plan as written. Number of minutes spent on the visit: 10.
[2024-05-09 08:50] LABS: African American GFR (CKD) >90 (>60 ml/min/1.73 sqM); Anion Gap 6 mmol/L; Blood Urea Nitrogen 15 mg/dL (9-20); Calcium 9.2 mg/dL (8.4-10.2); Carbon Dioxide 32 mmol/L (22-30); Chloride 99 mmol/L (98-107); Glucose 151 mg/dL (74-99); Non-African American GFR(CKD) >90 (>60 ml/min/1.73 sqM); Potassium 4.3 mmol/L (3.5-5.1); Sodium 137 mmol/L (137-145)
--- NOTE | 2024-05-09 14:27 | XR ---
EXAMINATION TYPE: XR chest 2V DATE OF EXAM: 05/09/2024 COMPARISON: 05/08/2024 HISTORY: Follow-up pneumothorax TECHNIQUE: Frontal and lateral views of the chest are obtained. FINDINGS: Pneumothorax catheter right chest is unchanged. There is increased density right lung base with pleur al effusion. Previously noted hydropneumothorax and small right basilar pneumothorax are not clearly visualized on today's study. Small amount of subcutaneous air is again noted. Left lung is clear. Heart size is stable. Mediastinal structures are stable and grossly unremarkable. No evidence for hilar prominence. Degenerative changes dorsal spine. IMPRESSION: 1. Pneumothorax catheter right chest is unchanged. There is increased density right lung base with pl eural effusion. Previously noted hydropneumothorax and small right basilar pneumothorax are not clear ly visualized on today's study. Small amount of subcutaneous air is again noted. [facility], , 05/09/2024 2:25 PM
--- NOTE | 2024-05-09 14:48 | P.PN ---
Progress Note - Text Progress Note Date: 05/09/24 KULWANT. Pain is controlled. Denies SOB VSS General-NAD CVS-RRR Lungs-NLB Abdomen-soft, NTND 69 yo male w/ rib fractures 7th and 8th Right Side and Pneumothorax -CXR pending today -Chest tube to wall suction -encourage incentive spirometer -pain control Jorge Pacheco [facility] [phone]
--- NOTE | 2024-05-09 14:55 | P.PN ---
Progress Note - Text Progress Note Date: 05/09/24 - Chief Complaint Fall - History of Present Illness Pleasant 69-year-old patient who follows with Gena Avitia. 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 Chronic stable medical condition include GERD, significant rheumatoid arthritis, esophageal stricture that has been dilated in the past. A while ago. Has not followed up. He has trouble eating because the same has lost significant amount of weight for the same in the last 2 years. Patient has chronic back and knee pain. Depression. Last night apparently patient had gotten up to go to the bathroom and he thinks that he may have blacked out not sure. There is no head or neck trauma. He suffered right-sided seventh and eighth rib fracture and a large pneumothorax. He was transferred here from [facility] has a right- sided Thora vent-. Is attached to suction. At the baseline does use a cane. Normally has a bowel movement once every week. May 08: Laying in bed. at the bedside. Some pain at the right rib fracture site. Tolerating diet. Taking his medications. May 09: Thora-vent remains in place. Tolerating diet. Connected to waterseal.-Will suction. Chest x-ray shows increased density right lung base with pleural effusion. The hydropneumothorax is much better. Small amount of subcutaneous air. Active Medications Acetaminophen (Acetaminophen Tab 325 Mg Tab) 650 mg PO Q6HR PRN PRN Reason: Mild Pain or Fever > 100.5 Last Admin: 05/07/24 05:44 Dose: 650 mg Bisacodyl (Bisacodyl 5 Mg Tablet.) 5 mg PO DAILY [facility] Last Admin: 05/09/24 09:19 Dose: 5 mg Enoxaparin Sodium (Enoxaparin 40 Mg/0.4 Ml Syringe) 40 mg SQ DAILY [facility] Last Admin: 05/09/24 09:18 Dose: 40 mg Gabapentin (Gabapentin 400 Mg Cap) 800 mg PO TID [facility] Last Admin: 05/09/24 09:19 Dose: 800 mg Hydromorphone HCl (Hydromorphone 0.5 Mg/0.5 Ml Syringe) 0.5 mg IVP Q3HR PRN PRN Reason: Moderate Pain (Scale 4 to 6) Last Admin: 05/09/24 12:29 Dose: 0.5 mg Lidocaine (Lidocaine 4% Patch) 1 patch TOPICAL DAILY [facility]; Protocol Last Admin: 05/09/24 09:19 Dose: 1 patch Methocarbamol (Methocarbamol 500 Mg Tab) 500 mg PO TID [facility] Last Admin: 05/09/24 09:20 Dose: 500 mg Morphine Sulfate (Morphine Sulfate Er 100 Mg Tablet) 100 mg PO Q12HR [facility]; Protocol Last Admin: 05/09/24 09:18 Dose: 100 mg Naloxone HCl (Naloxone 0.4 Mg/Ml 1 Ml Vial) 0.2 mg IV Q2M PRN PRN Reason: Opioid Reversal Ropinirole HCl (Ropinirole Hcl 1 Mg Tab) 3 mg PO HS PRN PRN Reason: RESTLESS LEGS Sumatriptan Succinate (Sumatriptan Succinate 50 Mg Tab) 50 mg PO DAILY PRN PRN Reason: Migraine Headache Venlafaxine HCl (Venlafaxine Hcl Er 150 Mg Cap) 150 mg PO DAILY [facility] Last Admin: 05/09/24 09:20 Dose: 150 mg Zolpidem Tartrate (Zolpidem 5 Mg Tab) 10 mg PO HS [facility] Last Admin: 05/08/24 20:16 Dose: 10 mg Social history: Lives with his . Does use a cane. Did smoke in the past. 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 Physical examination: VITAL SIGNS: 98.5, 96, 18, 133 x 77, 98% room air GENERAL: BMI 24, reclining in bed, not in distress EYES: Pupils equal. Conjunctiva flavia l. HEENT: External appearance of nose and ears normal, oral cavity grossly normal. NECK: JVD not raised; masses not palpable. HEART: First and second heart sounds are normal; no edema. LUNGS: Respiratory rate increased, decreased breath sound. Right-sided [id number] to seal. ABDOMEN: Soft, nontender, liver spleen not palpable, no masses palpable. PSYCH: Alert and oriented x3; mood and affect flavia l. MUSCULOSKELETAL:No Clubbing/cyanosis;muscles-grossly intact. OA. Right chest wall tenderness INVESTIGATIONS, reviewed in the clinical context: Chest x-ray film [May 09] possible atelectasis/possible lung contusion right lung base. Pleural effusion/small hemothorax possible. May 09: Potassium 4.3 creatinine 0.65 May 06: White count 8.5 hemoglobin 12.1 platelets 276 potassium 4.3 creatinine 0.92 Chest x-ray film personally reviewed by me-hyperinflation. Right seventh and eighth rib fracture. Thora-vent Assessment plan: -Right-sided traumatic pneumothorax secondary to fall. [id number] to serial -Right sided 7 and 8 rib fractures secondary to fall. Causing pain tenderness -Large hiatal hernia -Significant rheumatoid arthritis. Which chronic back and knee pain. For chronic pain patient takes MS Contin 100 mg every 12 and [employer] 10 twice daily. gabapentin -Depression anxiety Effexor XR 150 mg a day -Right lung based on the x-ray shows possible pulmonary contusions. Small amount of hemothorax possible. Surgery following the same. Add incentive spirometry. -Restless leg syndrome Requip 3 mg nightly as needed -Chronic insomnia Ambien 10 mg p.o. nightly -Chronic constipation secondary to chronic narcotics. Baseline about 1 bowel movement a week Dulcolax as needed -Chronic gait dysfunction does use a cane at the baseline -Full code Discussed with patient Past Medical History Past Medical History: GERD/Reflux, Myocardial Infarction (CT), Rheumatoid Arthritis (RA) Additional Past Medical History / Comment(s): "stroke of penis with difficulty urinating". esophageal stricture and he has undergone balloon angioplasty. wt loss of 100# over last 7 months. CBP Last Myocardial Infarction Date:: History of Any Multi-Drug Resistant Organisms: None Reported Past Surgical History: Joint Replacement, Tonsillectomy Additional Past Surgical History / Comment(s): 3 hip replacement surgeries lt hip, 1 replacement surgery to rt hip, shannan knee replacement, surgery to repair lt femur Past Anesthesia/Blood Transfusion Reactions: No Reported Reaction Past Psychological History: Depression Past Alcohol Use History: Rare Past Drug Use History: None Reported
--- NOTE | 2024-05-09 15:50 | P.PN ---
Subjective Progress Note Date: 05/09/24 This is a very pleasant 69-year-old male patient who presented to [facility] after having an episode of syncope. The patient got out of bed at around 2:30 AM and before getting back into the bed he passed out landing on the floor in his bedroom. He did land on his right side and he caught a piece of furniture when he fell as well. No head trauma. He is known to have previous history of heart disease. He is a non-smoker. Notes of alcoholism. No previous episodes of syncope. No focal neurological deficits for now. No altered mentation. He initially presented himself to [facility]. The patient was found to have a right-sided pneumothorax. A chest x-ray that was done in [facility] showed a right-sided pneumothorax along with fracture in the seventh and eighth rib. CAT scan of the abdomen and pelvis showed a large hiatal hernia and a right-sided pneumothorax. CAT scan of the head showed no acute abnormalities. No evidence of intracranial bleeds. CAT scan of the chest showed a right lateral seventh and eighth rib fracture along with a large right-sided pneumothorax. The blood work showed a WBC count of 8.9 with a hemoglobin 12.2 and a platelet count of 255. The patient had a BUN of 22 with a creatinine 1.33. Electrolytes were essentially within normal limits. CPK was 194. Troponin was negative. The patient had a proBNP level of 464. His coagulation profile was essentially within normal limits. The patient is seen today May 08, 2024 in follow-up on the selective care unit. He is currently resting comfortably in bed. Awake and alert in no acute distress. Maintaining good O2 saturations in the 90s on room air. Afebrile. Hemodynamically stable. He remains with a Thora vent to the right chest that is to wall suction. No leak noted. Chest x-ray shows near complete expansion of the pneumothorax. Evidence of fractures to ribs 7 and 8. Echocardiogram reveals normal left ventricular systolic function. No labs today. Lovenox for DVT prophylaxis. Lidocaine patch and morphine for pain control. The patient is seen today May 09, 2024 in follow-up on the selective care unit. He is currently sitting up in bed. Awake and alert in no acute distress. He denies any shortness of breath, cough or congestion. No hemoptysis. No chest pain. Maintaining O2 saturations in the 90s on room air. Afebrile. Hemodynamically stable. Thora vent to right chest was capped today. Follow-up chest x-ray reveals no evidence of hydropneumothorax or right sided basilar pneumothorax. Small amount of subcutaneous air noted. Sodium 137. Potassium 4.3. Bicarb 32. BUN 15. Creatinine 0.65. Glucose 151. He remains on Lovenox for DVT prophylaxis. Pain is well-controlled. Objective - Vital Signs Vital signs: Vital Signs Temp 98.5 F 05/09/24 08:56 Pulse 96 05/09/24 12:06 Resp 18 05/09/24 12:06 BP 133/77 05/09/24 12:06 Pulse Ox 98 05/09/24 12:06 FiO2 Intake & Output 05/08/24 05/09/24 05/09/24 18:59 06:59 18:59 Intake Total 240 380 Output Total 0 1000 350 Balance 240 -1000 30 Weight 78.6 kg 79.1 kg Intake: IV 20 Invasive Line 1 20 Oral 240 360 Output: Urine 1000 350 Stool 0 Other: Voiding Method External Catheter External Catheter External Catheter # Voids 0 # Bowel Movements 1 - Exam GENERAL EXAM: Alert, 69-year-old male, sitting up in bed, on room air, comfortable in no apparent distress. HEAD: Normocephalic. EYES: Normal reaction of pupils, equal size. NOSE: Clear with pink turbinates. THROAT: No erythema or exudates. NECK: No masses, no JVD. CHEST: No chest wall deformity. Right sided Thora vent in place, capped. LUNGS: Equal air entry with no crackles, wheeze, rhonchi or dullness. CVS: S1 and S2 normal with no audible murmur, regular rhythm. ABDOMEN: No hepatosplenomegaly, normal bowel sounds, no guarding or rigidity. SPINE: No scoliosis or deformity SKIN: No rashes CENTRAL NERVOUS SYSTEM: No focal deficits, tone is normal in all 4 extremities. EXTREMITIES: There is no peripheral edema. No clubbing, no cyanosis. Peripheral pulses are intact. - Labs CBC & Chem 7: 05/06/24 16:46 05/09/24 07:59 Labs: Abnormal Lab Results - Last 24 Hours (Table) 05/09/24 Range/Units 07:59 Carbon Dioxide 32 H (22-30) mmol/L Creatinine 0.65 L (0.66-1.25) mg/dL Glucose 151 H (74-99) mg/dL Assessment and Plan Assessment: Traumatic right-sided pneumothorax, status post insertion of a Thora vent with subsequent reexpansion of right lung. No evidence of any air leak in the Pleur- evac is currently attached to the Thora vent and there is no significant output. Patient is on low suction at -20 cm of water. Repeat chest x-ray shows resolution of the right-sided pneumothorax. Thora vent capped today. Follow-up chest x-ray continues show no evidence of pneumothorax. Right-sided rib fractures seventh and eighth secondary to trauma Syncope under investigation History of esophageal stricture with previous balloon dilatation and the patient has had significant weight loss over the years History of rheumatoid arthritis History of migraines Iron deficiency Chronic anxiety/depression Large hiatal hernia Plan: The patient was seen and evaluated Chest x-ray, labs and medications reviewed Continue Thora vent capped Follow-up chest x-ray reveals no pneumothorax Plan to remove Thora vent today Follow-up chest x-ray in a.m. Probable discharge in the a.m. I have personally seen and examined the patient, performed the documentation and the assessment and plan as written. Number of minutes spent on the visit: 10.
[2024-05-10 07:05] LABS: HCT 41.5 % (39.0-53.0); HGB 12.8 gm/dL (13.0-17.5); Hypochromasia Marked; MCH 30.4 pg (25.0-35.0); MCHC 30.8 g/dL (31.0-37.0); MCV 98.5 fL (80.0-100.0); Mean Platelet Volume 7.7; Platelet Count 262 k/uL (150-450); RBC 4.21 m/uL (4.30-5.90); RDW 13.3 % (11.5-15.5); WBC 7.7 k/uL (3.8-10.6)
--- NOTE | 2024-05-10 08:34 | XR ---
EXAMINATION TYPE: XR chest 2V DATE OF EXAM: 05/10/2024 COMPARISON: 05/09/2024 HISTORY: Shortness of breath TECHNIQUE: Frontal and lateral views of the chest are obtained. FINDINGS: Right-sided rib fractures are redemonstrated. Right-sided pleural catheter has been removed without e vidence for sizable pneumothorax. Pleural parenchymal opacity persists at the right lung base with sm all effusion. Heart size is stable. Mediastinal structures are stable and grossly unremarkable. No evidence for hilar prominence. Degenerative changes dorsal spine. IMPRESSION: 1. Right-sided rib fractures are redemonstrated. Right-sided pleural catheter has been removed withou t evidence for sizable pneumothorax. Pleural parenchymal opacity persists at the right lung base with small effusion. [facility], , 05/10/2024 8:32 AM
[2024-05-10 12:10] VITALS: BP 118/62; PULSE 69; RESP 18; TEMP 98
--- NOTE | 2024-05-10 14:27 | P.DS ---
Providers Date of admission: 05/06/24 16:46 Expected date of discharge: 05/10/24 Attending physician: Barrie Holland DO Consults: 05/06/24 16:46 Consult Physician Routine Consulting Provider: Ttao Lopes Consult Reason/Comments: rib fracture/pneumothorax Do you want consulting provider notified?: Yes Consult Physician Routine Consulting Provider: Nemesio Tanner Consult Reason/Comments: medical, pneumothorax, rib fracture Do you want consulting provider notified?: Yes Primary care physician: Esteban [facility] Course: Discharge diagnosis 1. Seventh and eighth right-sided rib fractures secondary with traumatic pneumothorax Hospital course 69-year-old male transferred from outside hospital with right-sided rib fracture pneumothorax after sustaining a fall which occurred in the middle of the night. Patient received CT imaging of the head, chest abdomen pelvis which showed a large pneumothorax on the right and displaced rib fractures seventh and eighth. Patient had chest tube placed. Followed by pulmonary service. Chest tube has been removed. Repeat chest x-ray shows no further pneumothorax. Patient's pain is controlled. He has been up and ambulating. He is on room air. He has been cleared by pulmonary and medical service for discharge. Patient is stable for discharge. Please refer to chart for any further details. Physician Epidemiology Internship note has been reviewed by physician. Signing provider agrees with the documented findings, assessment, and plan of care. Patient Condition at Discharge: Stable Plan - Discharge Summary Discharge Rx Participant: No New Discharge Prescriptions: New methocarbamoL [Robaxin] 500 mg PO TID #60 tab Continue HYDROcodone/APAP 10-325MG [[place] 10-325] 1 tab PO BID Morphine Sulfate [Ms Contin] 100 mg PO Q12HR Gabapentin 800 mg PO TID Zolpidem Tartrate [Ambien] 10 mg PO HS SUMAtriptan succinate [Imitrex] 50 mg PO DAILY PRN PRN Reason: Migraine Headache rOPINIRole HCL [Requip] 3 mg PO HS PRN PRN Reason: RESTLESS LEGS Triamcinolone Acetonide [Triamcinolone Acetonide 0.025%] 1 applic TOPICAL BID PRN PRN Reason: Itching bisacodyL [Dulcolax] 5 mg PO DAILY Ferrous Sulfate [Iron (65 MG Elemental)] 325 mg PO DAILY Venlafaxine HCl [Effexor XR] 150 mg PO DAILY Discharge Medication List Gabapentin 800 mg PO TID 01/15/20 [History] HYDROcodone/APAP 10-325MG [[place] 10-325] 1 tab PO BID 01/15/20 [History] Morphine Sulfate [Ms Contin] 100 mg PO Q12HR 01/15/20 [History] Zolpidem Tartrate [Ambien] 10 mg PO HS 01/15/20 [History] Ferrous Sulfate [Iron (65 MG Elemental)] 325 mg PO DAILY 05/06/24 [History] SUMAtriptan succinate [Imitrex] 50 mg PO DAILY PRN 05/06/24 [History] Triamcinolone Acetonide [Triamcinolone Acetonide 0.025%] 1 applic TOPICAL BID PRN 05/06/24 [History] Venlafaxine HCl [Effexor XR] 150 mg PO DAILY 05/06/24 [History] bisacodyL [Dulcolax] 5 mg PO DAILY 05/06/24 [History] rOPINIRole HCL [Requip] 3 mg PO HS PRN 05/06/24 [History] methocarbamoL [Robaxin] 500 mg PO TID #60 tab 05/10/24 [Rx] Follow up Appointment(s)/Referral(s): Esteban Aguilar MD [Primary Care Provider] - 05/15/24 11:00 am Eugene Pate MD [STAFF PHYSICIAN] - 1 Week Discharge Disposition: HOME SELF-CARE
--- NOTE | 2024-05-10 15:15 | P.PN ---
Subjective Progress Note Date: 05/10/24 Principal diagnosis: Acute traumatic right-sided pneumothorax This is a very pleasant 69-year-old male patient who presented to [facility] after having an episode of syncope. The patient got out of bed at around 2:30 AM and before getting back into the bed he passed out landing on the floor in his bedroom. He did land on his right side and he caught a piece of furniture when he fell as well. No head trauma. He is known to have previous history of heart disease. He is a non-smoker. Notes of alcoholism. No previous episodes of syncope. No focal neurological deficits for now. No altered mentation. He initially presented himself to [facility]. The vladimir escobedo was found to have a right-sided pneumothorax. A chest x-ray that was done in [facility] showed a right-sided pneumothorax along with fracture in the seventh and eighth rib. CAT scan of the abdomen and pelvis showed a large hiatal hernia and a right-sided pneumothorax. CAT scan of the head showed no acute abnormalities. No evidence of intracranial bleeds. CAT scan of the chest showed a right lateral seventh and eighth rib fracture along with a large right- sided pneumothorax. The blood work showed a WBC count of 8.9 with a hemoglobin 12.2 and a platelet count of 255. The patient had a BUN of 22 with a creatinine 1.33. Electrolytes were essentially within normal limits. CPK was 194. Troponin was negative. The patient had a proBNP level of 464. His coagulation profile was essentially within normal limits. The patient is seen today May 08, 2024 in follow-up on the selective care unit. He is currently resting comfortably in bed. Awake and alert in no acute distress. Maintaining good O2 saturations in the 90s on room air. Afebrile. Hemodynamically stable. He remains with a Thora vent to the right chest that is to wall suction. No leak noted. Chest x-ray shows near complete expansion of the pneumothorax. Evidence of fractures to ribs 7 and 8. Echocardiogram reveals normal left ventricular systolic function. No labs today. Lovenox for DVT prophylaxis. Lidocaine patch and morphine for pain control. The patient is seen today May 09, 2024 in follow-up on the selective care unit. He is currently sitting up in bed. Awake and alert in no acute distress. He denies any shortness of breath, cough or congestion. No hemoptysis. No chest pain. Maintaining O2 saturations in the 90s on room air. Afebrile. Hemodynamically stable. Thora vent to right chest was capped today. Follow-up chest x-ray reveals no evidence of hydropneumothorax or right sided basilar pneumothorax. Small amount of subcutaneous air noted. Sodium 137. Potassium 4.3. Bicarb 32. BUN 15. Creatinine 0.65. Glucose 151. He remains on Lovenox for DVT prophylaxis. Pain is well-controlled. Patient was evaluated today on 05/10/2024, patient is doing well, asymptomatic, I cleared him basically for discharge yesterday after removing his Thora vent, patient continues to do well, chest x-ray is reassuring, hence will clear the patient to be discharged home today assuming ml the patient is cleared by other consultants. Objective - Vital Signs Vital signs: Vital Signs Temp 98.0 F 05/10/24 12:00 Pulse 69 05/10/24 12:00 Resp 18 05/10/24 12:00 BP 118/62 05/10/24 12:00 Pulse Ox 97 05/10/24 12:00 FiO2 Intake & Output 05/09/24 05/10/24 05/10/24 18:59 06:59 18:59 Intake Total 616 20 10 Output Total 500 100 500 Balance 116 -80 -490 Weight 74.2 kg Intake: IV 20 20 10 Invasive Line 1 20 20 10 Oral 596 Output: Urine 500 100 500 Other: Voiding Method External Catheter External Catheter External Catheter # Voids 0 # Bowel Movements 1 - Exam GENERAL EXAM: Alert, 69-year-old male, sitting up in bed, on room air, comfortable in no apparent distress. HEAD: Normocephalic. EYES: Normal reaction of pupils, equal size. NOSE: Clear with pink turbinates. THROAT: No erythema or exudates. NECK: No masses, no JVD. CHEST: No chest wall deformity. Right sided Thora vent in place, capped. LUNGS: Equal air entry with no crackles, wheeze, rhonchi or dullness. CVS: S1 and S2 normal with no audible murmur, regular rhythm. ABDOMEN: No hepatosplenomegaly, normal bowel sounds, no guarding or rigidity. SKIN: No rashes CENTRAL NERVOUS SYSTEM: No focal deficits, tone is normal in all 4 extremities. EXTREMITIES: There is no peripheral edema. No clubbing, no cyanosis. Peripheral pulses are intact. - Labs CBC & Chem 7: 05/10/24 06:44 05/09/24 07:59 Labs: Abnormal Lab Results - Last 24 Hours (Table) 05/10/24 Range/Units 06:44 RBC 4.21 L (4.30-5.90) m/uL Hgb 12.8 L (13.0-17.5) gm/dL MCHC 30.8 L (31.0-37.0) g/dL Assessment and Plan Assessment: Impression: Traumatic right-sided pneumothorax, status post insertion of a Thora vent with subsequent reexpansion of right lung. No evidence of any air leak in the Pleur- evac is currently attached to the Thora vent and there is no significant output. Patient is on low suction at -20 cm of water. Repeat chest x-ray shows resolution of the right-sided pneumothorax. Thora vent removed yesterday . Follow-up chest x-ray continues show no evidence of pneumothorax. Right-sided rib fractures seventh and eighth secondary to trauma Syncope under investigation History of esophageal stricture with previous balloon dilatation and the patient has had significant weight loss over the years History of rheumatoid arthritis History of migraines Iron deficiency Chronic anxiety/depression Large hiatal hernia Recommendation: Will clear the patient for discharge if cleared by other consultants, Could follow-up on outpatient basis if needed. Time with Patient: Less than 30
--- NOTE | 2024-05-10 22:16 | P.PN ---
Progress Note - Text Progress Note Date: 05/10/24 - Chief Complaint Fall - History of Present Illness Pleasant 69-year-old patient who follows with Gena Avitia. 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 Chronic stable medical condition include GERD, significant rheumatoid arthritis, esophageal stricture that has been dilated in the past. A while ago. Has not followed up. He has trouble eating because the same has lost significant amount of weight for the same in the last 2 years. Patient has chronic back and knee pain. Depression. Last night apparently patient had gotten up to go to the bathroom and he thinks that he may have blacked out not sure. There is no head or neck trauma. He suffered right-sided seventh and eighth rib fracture and a large pneumothorax. He was transferred here from [facility] has a right- sided Thora vent-. Is attached to suction. At the baseline does use a cane. Normally has a bowel movement once every week. May 08: Laying in bed. at the bedside. Some pain at the right rib fracture site. Tolerating diet. Taking his medications. May 09: Thora-vent remains in place. Tolerating diet. Connected to waterseal.-Will suction. Chest x-ray shows increased density right lung base with pleural effusion. The hydropneumothorax is much better. Small amount of subcutaneous air. May 10: Thora vent was removed. Breathing much better. Discussed with patient. Eating fair. Patient to continue with his chronic home medications/p ain medications Social history: Lives with his . Does use a cane. Did smoke in the past. 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 Physical examination: VITAL SIGNS: 98, 69, 18, 118 x 62, 97% room air GENERAL: BMI 24, more comfortable EYES: Pupils equal. Conjunctiva flavia l. HEENT: External appearance of nose and ears normal, oral cavity grossly normal. NECK: JVD not raised; masses not palpable. HEART: First and second heart sounds are normal; no edema. LUNGS: Respiratory rate increased, decreased breath sound. Thora vent removed ABDOMEN: Soft, nontender, liver spleen not palpable, no masses palpable. PSYCH: Alert and oriented x3; mood and affect flavia l. MUSCULOSKELETAL:No Clubbing/cyanosis;muscles-grossly intact. OA. Right chest wall tenderness INVESTIGATIONS, reviewed in the clinical context: May 10: White count 7.7 hemoglobin 12.8 Chest x-ray film [May 09] possible atelectasis/possible lung contusion right lung base. Pleural effusion/small hemothorax possible. May 09: Potassium 4.3 creatinine 0.65 May 06: White count 8.5 hemoglobin 12.1 platelets 276 potassium 4.3 creatinine 0.92 Chest x-ray film personally reviewed by me-hyperinflation. Right seventh and eighth rib fracture. Thora-vent Assessment plan: -Right-sided traumatic pneumothorax secondary to fall. [id number] to suction. Discontinued -Right sided 7 and 8 rib fractures secondary to fall. Causing pain tenderness -Large hiatal hernia -Significant rheumatoid arthritis. Which chronic back and knee pain. For chronic pain patient takes MS Contin 100 mg every 12 and [place] 10 twice daily. gabapentin -Depression anxiety Effexor XR 150 mg a day -Right lung based on the x-ray shows possible pulmonary contusions. Small amount of hemothorax possible. Surgery following the same. Add incentive spirometry. -Restless leg syndrome Requip 3 mg nightly as needed -Chronic insomnia Ambien 10 mg p.o. nightly -Chronic constipation secondary to chronic narcotics. Baseline about 1 bowel movement a week Dulcolax as needed -Chronic gait dysfunction does use a cane at the baseline -Full code Discussed with patient. Questions answered. Past Medical History Past Medical History: GERD/Reflux, Myocardial Infarction ([place]), Rheumatoid Arthritis ([place]) Additional Past Medical History / Comment(s): "stroke of penis with difficulty urinating". esophageal stricture and he has undergone balloon angioplasty. wt loss of 100# over last 7 months. CBP Last Myocardial Infarction Date:: History of Any Multi-Drug Resistant Organisms: None Reported Past Surgical History: Joint Replacement, Tonsillectomy Additional Past Surgical History / Comment(s): 3 hip replacement surgeries lt hip, 1 replacement surgery to rt hip, shannan knee replacement, surgery to repair lt femur Past Anesthesia/Blood Transfusion Reactions: No Reported Reaction Past Psychological History: Depression Past Alcohol Use History: Rare Past Drug Use History: None Reported
== END 2024-05-10 15:09 | disposition home or self-care (01) | DRG 200 ==
LOC: EC 16:08 → 3SCARD 16:46
PROVIDERS: ADMIT Surgery; ATTEND Surgery
PROC: 0W9930Z Drainage of Right Pleural Cavity with Drainage Device, Percutaneous Approach (ICD-10-PCS; principal; 2024-05-06)
DX: S27.0XXA Traumatic pneumothorax, initial encounter (principal); J90 Pleural effusion, not elsewhere classified; S22.41XA Multiple fractures of ribs, right side, initial encounter for closed fracture; S27.321A Contusion of lung, unilateral, initial encounter; W19.XXXA Unspecified fall, initial encounter; F51.04 Psychophysiologic insomnia; K21.9 Gastro-esophageal reflux disease without esophagitis; M06.9 Rheumatoid arthritis, unspecified; F32.A Depression, unspecified; K22.89 Other specified disease of esophagus; K44.9 Diaphragmatic hernia without obstruction or gangrene; S27.2XXA Traumatic hemopneumothorax, initial encounter; G89.29 Other chronic pain; F41.9 Anxiety disorder, unspecified; F10.20 Alcohol dependence, uncomplicated; K59.03 Drug induced constipation; T40.605A Adverse effect of unspecified narcotics, initial encounter; E61.1 Iron deficiency; R26.9 Unspecified abnormalities of gait and mobility; G25.81 Restless legs syndrome; Z96.653 Presence of artificial knee joint, bilateral; Z96.643 Presence of artificial hip joint, bilateral; Z88.0 Allergy status to penicillin; Z88.6 Allergy status to analgesic agent; Z88.1 Allergy status to other antibiotic agents; Z79.899 Other long term (current) drug therapy; I25.2 Old myocardial infarction; Z87.891 Personal history of nicotine dependence
CPT/HCPCS: 36415; 71045; 71046; 80048; 80053; 85025; 85027; 93306; 96372; 96374; 96376; 99291